=== PATIENT | male | born 1945 | race American Indian/Alaskan Native ===

== ENCOUNTER 2016-07-15 11:20 | Outpatient (CLI) | payer MEDICARE, OTHER ==
--- NOTE | 2016-07-15 16:33 | Ultrasound Report ---
BILATERAL DIAGNOSTIC MAMMOGRAM AND RIGHT WHOLE BREAST ULTRASOUND INCLUDING ALL 4 QUADRANTS AND SUBAREOLAR REGION: HISTORY: Swelling and tenderness in the right breast in a 71-year-old male. FINDINGS: There is increased breast tissue in the subareolar right breast compared to the left. No defined mass is seen, and there is no skin thickening or retraction. No suspicious calcifications are seen. Targeted ultrasound of the right breast demonstrates a subareolar hypoechoic lesion measuring 1.3 x 1.2 cm. The margins are somewhat ill-defined and irregular, but no acoustic shadowing is seen. IMPRESSION: Gynecomastia is present on the right. Sonographic findings may represent a small inflammatory lesion/abscess. No suspicious imaging findings are seen. BI-RADS CATEGORY: 3 = Probably benign ACR BI-RADS MAMMOGRAPHIC CODES: 0 = Needs additional imaging evaluation; 1 = Negative; 2 = Benign; 3 = Probably benign; 4 = Suspicious; 5 = Malignant; 6 = Known biopsy-proven malignancy COMMENT: 1. Dense breast tissue, i.e., adenosis, fibrocystic changes, etc., may obscure an underlying neoplasm. 2. Approximately 10% of cancers are not detected with mammography. 3. A negative mammography report should not delay biopsy if a clinically suspicious mass is present. RECOMMENDATION: A 3 month follow-up ultrasound is recommended after appropriate medical management.
== END 2016-07-15 11:21 | disposition home or self-care (01) ==
LOC: US 11:20
PROVIDERS: ATTEND Internal Medicine Hematology & Oncology
DX: N63 Unspecified lump in breast (principal); N64.89 Other specified disorders of breast; I10 Essential (primary) hypertension; E11.9 Type 2 diabetes mellitus without complications; J06.9 Acute upper respiratory infection, unspecified; J18.9 Pneumonia, unspecified organism; N62 Hypertrophy of breast; M54.9 Dorsalgia, unspecified; R05 Cough; R49.0 Dysphonia
CPT/HCPCS: 76641; G0204; 77066

== ENCOUNTER 2016-07-28 13:46 | Outpatient (CLI) | payer MEDICARE, OTHER ==
--- NOTE | 2016-07-29 14:34 | Magnetic Resonance Report ---
BILATERAL BREAST MRI WITHOUT AND WITH CONTRAST: 07/28/16 13:46:00 CLINICAL: 71-year-old male with breast enlargement and tenderness. A possible 1.3 cm right retroareolar inflammatory lesion/abscess was suspected by ultrasound. COMPARISON:07/15/16 bilateral mammogram and bilateral breast ultrasound. TECHNIQUE: Axial 1.0-mm T1 without, axial high resolution 2.0-mm T2 and axial 1.0-mm dynamic Vibrant high-resolution postcontrast T1 fat saturation sequences on a 1.5 [place] magnet. The examination was performed with an 8 channel dedicated [place] breast coil. Post processing with CAD and subtraction was performed on an [employer] workstation. 10.0 cc of Multihance was injected without incident for the contrast portion of the exam. Consent was obtained prior to the administration of the contrast. FINDINGS: Right: The breast is enlarged with a moderately large volume of retroareolar fibroglandular structures producing asymmetric parenchymal enhancement when compared to the left breast which is almost entirely fatty. The enhancing fibroglandular structures of the right breast composed approximately 1/3 of the breast. No mass or suspicious enhancement. No suspicious lymph nodes. Left: The left breast is enlarged but almost entirely fatty with minimal background parenchymal enhancement. No mass or suspicious enhancement. No suspicious lymph nodes. IMPRESSION: Bilateral fatty breast enlargement and benign right unilateral gynecomastia with a diffuse pattern. Recommend clinical followup. RIGHT BI-RADS 2 -- Benign LEFT BI-RADS 1 -- Negative
== END 2016-07-28 13:47 | disposition home or self-care (01) ==
LOC: SPVIMAG 13:46
PROVIDERS: ATTEND Internal Medicine Hematology & Oncology
DX: N63 Unspecified lump in breast (principal); N61.1 Abscess of the breast and nipple; N62 Hypertrophy of breast
CPT/HCPCS: 0159T; 82962; A9577; C8908; 77059